=== PATIENT | female | born 2000 | race Caucasian/White ===

== ENCOUNTER 2024-11-05 10:25 | Outpatient (AMB) | payer OTHER, SELFPAY ==
--- NOTE | 2024-11-05 10:22 | A.OFFPC_ITS ---
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 Intake Note: New patient visit Special Effects Specialist Required: No Allergies bee pollen Allergy (Unknown, Verified 11/05/24 10:30) Unknown mold Allergy (Unknown, Verified 11/05/24 10:30) Unknown tree nuts Allergy (Unknown, Uncoded 11/05/24 10:30) Unknown Tobacco use date assessed: 11/05/24 Dental Screening Dental Screen Date: 11/05/24 Did you have a dental visit in the last 12 months?: Yes Did you have a dental problem in the last 6 months where you did not have access to dental care?: No Was dental information given to patient?: Patient has dentist HPI HPI Comments History of Present Illness Details The patient is a 24-year-old female presenting with a routine wellness visit. She is transitioning from pediatric to adult care, having been previously seen by pediatric [facility]. She is due for a physical. Patient was informed and verbally consented to the use of an ambient scribe for clinic note documentation during this visit. She has a history of a lifelong tree nut allergy, excluding peanuts, which results in significant respiratory distress upon exposure; however, she has not required treatment for an allergic reaction since childhood. She does not have an active prescription for an EpiPen. I prescribed one today and re-educated about propr use. Environmental allergies are present, for which she takes Anastasia as needed. She reported a neck nodule in the past that was biopsied and resolved without intervention. She has had a history of anxiety and depression for several years, causing distress, especially in occupational settings. Anxiety manifests intensely with nausea upon waking, and she has panic attacks. Previously attempted therapy was not beneficial for her. She works at [employer] with irregular scheduling, causing additional stress and anxiety. She is interested in seeing a psychiatrist for a medication consult. Denies SI/HI. She smokes marijuana which helps to decrease anxiety and helps her to sleep. She only drinks alcohol rarely. She goes to [facility] health coordinator and is up to date. She wears glasses, and eye exam is up to date. Dental exam is up to date. She enjoys playing video games. She lives with her mother who she says his supportive. She declines influenza vaccine. Tdap administered today. ROS: Constitutional: No unexplained weight loss, fever, chills, fatigue or night sweats. Eyes: No vision changes, blurry vision, double vision, eye pain, eye redness, eye discharge. ENT: No hearing loss, sneezing, congestion, runny nose or sore throat. Respiratory: No shortness of breath, cough or sputum production. Cardiovascular: No chest pain, chest pressure or chest discomfort. No palpitations or pedal edema. Gastrointestinal: No anorexia, vomiting or diarrhea. No abdominal pain or blood in stool. Genitourinary: No dysuria, hematuria, urinary frequency. Neurologic: No headache, dizziness, syncope, unilateral weakness, ataxia, numbness or tingling in the extremities. Musculoskeletal: No muscle pain, back pain, joint pain or swelling. Hematologic/Lymphatics: No bleeding or bruising. No painful lymph nodes. Skin: No rash or itching. Endocrine: No cold or heat intolerance. No polyuria or polydipsia. Psychiatric: see HPI Physical exam: Constitutional: Alert, in no distress. Head: Normocephalic. Eyes: Pupils are equal, round and reactive to light. Extraocular muscles intact. Ear, Nose and Throat: Canals clear. TMs normal. Normal nasal mucosa. No nasal discharge. No oral lesions. Neck: Supple, Full range of motion. No lymphadenopathy. No palpable thyroid masses. Respiratory: Clear to auscultation. Cardiovascular: S1 S2 regular. No murmurs. Gastrointestinal: Abdomen soft, non-tender, non-distended. Normal bowel sounds. No palpable masses. Neurologic: No focal neurological deficits. Symmetric patellar reflexes. Moves all extremities spontaneously. Sensation intact bilaterally. Skin: No rashes Musculoskeletal: No gross deformities. Normal range of motion. Extremities: Warm and well perfused. No clubbing, cyanosis or edema. Psychiatric: Normal mood and affect [facility] Medical History (Updated 11/05/24 @ 11:11 by SOBIA Schwartz) Environmental allergies Tree nut allergy Panic attack Depression with anxiety Routine physical examination Surgical History (Updated 11/05/24 @ 10:37 by Serena Gold CMA) S/P thyroid biopsy Family History (Updated 11/05/24 @ 10:50 by SOBIA Schwartz) Paternal Grandfather Stroke Hyperlipidemia Mother Obesity Paternal Grandmother Hyperlipidemia Father Heart attack, Onset Age: 45 Tobacco use disorder Hyperlipidemia Hypertension Social History (Updated 11/05/24 @ 10:40 by Serena Gold CMA) Housing: House Alcohol intake: current Patient Tobacco Use Status: Never used Tobacco e-Cigarette/Vaping Use: Never Used Second Hand Smoke Exposure: No Substance Use Type: Marijuana service: No Current occupational status: employed Current occupation: Shift lead at [employer] Current occupational exposures/hazards: No Cognitive needs: No Hearing needs: No Vision needs: Yes (Glasses) Questionnaire PHQ-9 Over the last 2 weeks, how often have you been bothered by any of the following problems? 1. Little interest or pleasure in doing things: several days 2. Feeling down, depressed, or hopeless: several days 3. Trouble falling or staying asleep, or sleeping too much: several days 4. Feeling tired or having little energy: several days 5. Poor appetite or overeating: several days 6. Feeling bad about yourself - or that you are a failure or have let yourself or your family down: several days 7. Trouble concentrating on things, such as reading the newspaper or watching television: several days 8. Moving or speaking so slowly that other people could have noticed. Or the opposite - being so fidgety or restless that you have been moving around a lot more than usual: not at all 9. Thoughts that you would be better off or of hurting yourself in some way: not at all Total score: 7 Depression Screening Interpretation: Positive Depression Screening Done: Yes 68476 - PHQ-9 Billing: Yes Source: Developed by Drs. George Trammell, Bhavna Che, Andrew Oshea and colleagues, with an educational dewey from [employer]. Thrive Questionnaire Date Thrive assessed: 11/05/24 I am a: Patient What is your living situation today?: I have a steady place to live Within the past 12 months, did the food you bought not last and you didn't have the money to get more?: Never true Within the past 12 months, did you worry whether your food would run out before you got money to buy more?: Never true Do you have trouble paying for medicines?: No Do you have trouble getting transportation to medical appointments?: No Do you have trouble paying your heating and electricity bill?: No Do you have trouble taking care of your child, family member or friend?: No Do you have trouble with day-to-day activities such as bathing, preparing meals, shopping, managing finances, etc.?: No Are you currently unemployed and looking for a job?: No Are you interested in more education?: No Please select the resources that you would like help with: None Currently or been in a relationship where the following occur: No concerns reported THRIVE Score: 0 AUDIT C Alcohol Use Questionnaire (AUDIT-C) 1. How often do you have a drink containing alcohol?: Monthly or less 2. How many drinks containing alcohol do you have on a typical day when you are drinking?: 1 or 2 3. How often do you have six or more drinks on one occasion?: Never Total Score: 1 CORNELL-7 AMB Questionnaire CORNELL-7 Date CORNELL - 7 assessed: 11/05/24 Feeling nervous, anxious, or on edge: 1 = Several days Not being able to stop or control worryin = Several days Worrying too much about different things: 1 = Several days Trouble relaxin = Several days Being so restless that it is hard to sit still: 1 = Several days Becoming easily annoyed or irritable: 1 = Several days Feeling afraid as if something awful might happen: 1 = Several days Total CORNELL-7 score (0-4 normal; 5-9 mild; 10-14 moderate; 15-21 severe): 7 Source: Developed by Drs. George Trammell, Bhavna Che, Andrew Oshea and colleagues, with an educational dewey from [employer]. Physical exam (Primary Care) Vital Signs: Last Vital Signs Pulse 71 11/05/24 10:37 BP 96/62 11/05/24 10:37 Pulse Ox 99 11/05/24 10:37 Oxygen Delivery Method Room Air 11/05/24 10:37 BMI result Body Mass Index 17.6 Tobacco/Smoking Status: Tobacco use Status Patient Tobacco Use Status Never used Tobacco 11/05/24 10:40 Depression Screening Interpretation: Positive Thrive Assessment: Date of Thrive Assessment Date Thrive assessed 11/05/24 11/05/24 10:23 Currently or been in a relationship where the following occur: No concerns reported Coding Level of Care Code New Pt Prev Care 18-39yr([id number] Diagnoses Routine physical examination Z00.00 Tree nut allergy Z91.018 Environmental allergies Z91.09 Panic attack F41.0 Depression with anxiety F41.8 Additional Codes PHQ-9 - 47662 - PHQ-9 Billing: Yes ([id number]) Assessment & Plan Assessment & Plan (1) Routine physical examination: Code(s): Z00.00 - Encounter for general adult medical examination without abnormal findings Category: Medical Plan: Patient is seen today for a routine physical. As part of this visit we reviewed the following issues, which are considered and essential part of preventative health in this age group: - Annual Facility Planner exam - Blood pressure screening - Cholesterol screening - she will return for labs. - Nutritional and exercise counseling - Counseling of injury prevention including fire prevention, smoke alarms and seat belt usage - Screening for depression - Prevention of and/or testing for infectious diseases - Education about skin cancer - Recommendations about immunizations - Recommendation of an eye exam - Screening for substance abuse - Genetic cancer risk screening (2) Tree nut allergy: Code(s): Z91.018 - Allergy to other foods Category: Medical Plan: Continue strict avoidance. EpiPen prescribed. (3) Environmental allergies: Code(s): Z91.09 - Other allergy status, other than to drugs and biological substances Category: Medical Plan: Continue Anastasia daily as needed. (4) Panic attack: Code(s): F41.0 - Panic disorder [episodic paroxysmal anxiety] Category: Medical Plan: Refer to psychiatrist for med consult. (5) Depression with anxiety: Code(s): F41.8 - Other specified anxiety disorders Category: Medical Plan: Refer to psychiatrist for med consult. Plan Follow up in 8 weeks for anxiety and depression. Orders: Orders TDaP Immunization Today Z23 - Encounter for immunization Comprehensive Met. Panel Today Z00.00 - Encounter for general adult medical examination without abnormal findings, Z13.6 - Encounter for screening for cardiovascular disorders Lipid Panel Today E78.5 - Hyperlipidemia, unspecified, Z00.00 - Encounter for general adult medical examination without abnormal findings, Z13.6 - Encounter for screening for cardiovascular disorders Complete Blood Count no Diff Today Z00.00 - Encounter for general adult medical examination without abnormal findings, Z13.6 - Encounter for screening for cardiovascular disorders Referrals Psychiatry Outpatient Consultation Service F41.0 - Panic disorder [episodic paroxysmal anxiety], F41.8 - Other specified anxiety disorders Medications: New epinephrine (EpiPen) call 911 if epipen is adminstered 0.3 mg (0.3 mL) IM Q15M PRN 2 ea 2RF anaphylaxis Boostrix Tdap (diphth,pertus(acell),tetanus) 0.5 mL IM ONCE 0.5 mL 0RF NS Z23 - Encounter for immunization
[2024-11-05 10:37] VITALS: BP 96/62; PULSE 71; O2SAT 99; BMI 17.6
== END 2024-11-05 11:12 | disposition home or self-care (01) ==
PROVIDERS: PCP Physician Assistant Medical; Visit Provider Physician Assistant Medical
DX: Z00.00 Encounter for general adult medical examination without abnormal findings (principal); Z91.018 Allergy to other foods; Z91.09 Other allergy status, other than to drugs and biological substances; F41.0 Panic disorder [episodic paroxysmal anxiety]; F41.8 Other specified anxiety disorders; Z23 Encounter for immunization

== ENCOUNTER 2024-12-04 14:56 | Outpatient (AMB) | payer OTHER, SELFPAY ==
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
== END 2024-12-04 15:49 | disposition home or self-care (01) ==
LOC: HO.HOP 14:56
PROVIDERS: PCP Physician Assistant Medical; Visit Provider Clinical Nurse Specialist Psychiatric/Mental Health
DX: F33.1 Major depressive disorder, recurrent, moderate (principal); F41.1 Generalized anxiety disorder; F41.0 Panic disorder [episodic paroxysmal anxiety]
CPT/HCPCS: 90792

== ENCOUNTER → 2024-12-04 14:56 | Outpatient (BNVA) | payer OTHER, SELFPAY | PROVIDERS: PCP Physician Assistant Medical; Visit Provider Clinical Nurse Specialist Psychiatric/Mental Health | DX: F41.1 Generalized anxiety disorder (principal); F41.0 Panic disorder [episodic paroxysmal anxiety]; F33.1 Major depressive disorder, recurrent, moderate | CPT/HCPCS: 90792 ==

== ENCOUNTER 2025-01-01 15:02 | Outpatient (AMB) | payer OTHER, SELFPAY ==
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
== END 2025-01-01 15:19 | disposition home or self-care (01) ==
LOC: HO.HOP 15:02
PROVIDERS: PCP Physician Assistant Medical; Visit Provider Clinical Nurse Specialist Psychiatric/Mental Health
DX: F41.1 Generalized anxiety disorder (principal); F41.0 Panic disorder [episodic paroxysmal anxiety]; F33.1 Major depressive disorder, recurrent, moderate
CPT/HCPCS: 99214

== ENCOUNTER → 2025-01-01 15:02 | Outpatient (BNVA) | payer OTHER, SELFPAY | PROVIDERS: PCP Physician Assistant Medical; Visit Provider Clinical Nurse Specialist Psychiatric/Mental Health ==

== ENCOUNTER 2025-01-04 11:32 | Outpatient (AMB) | payer OTHER, SELFPAY ==
--- NOTE | 2025-01-04 11:42 | MHC.PC.OV ---
Vital Signs 01/04/25 11:43 Height 5 ft 3.46 in Weight 100 lb BMI 17.5 BP 112/62 Blood Pressure Location Rt brachial Position Sitting Pulse 90 Pulse Source Pulse Oximeter Pulse Oximetry (%) 98 Oxygen Delivery Method Room Air Intake Visit Reasons: follow up depression and anxiety Allergies bee pollen Allergy (Unknown, Verified 01/04/25 11:46) Unknown mold Allergy (Unknown, Verified 01/04/25 11:46) Unknown tree nuts Allergy (Unknown, Uncoded 01/04/25 11:46) Unknown Tobacco use date assessed: 01/04/25 Dental Screening Dental Screen Date: 01/04/25 Did you have a dental visit in the last 12 months?: Yes Did you have a dental problem in the last 6 months where you did not have access to dental care?: No Was dental information given to patient?: Patient has dentist HPI HPI Comments History of Present Illness Details The patient is a 24-year-old female presenting for follow up. She was seen for a a routine physical in October, and we discussed anxiety and depression that lasted several years which caused distress, especially in occupational settings. She endorsed panic attacks. She is still working at [employer] with irregular scheduling which causes additional stress and anxiety. She denied SI/HI. She was referred to Psychology and Psychiatry. She is seeing Saundra Monte. She is on Zoloft 50 mg. She is tolerating it, and she feels like it is helping with anxiety and depression symptoms. She has sleep dysfunction and was prescribed hydroxyzine, and she just picked it up from the pharmacy but has not taken it yet. She has a follow up with her psychiatrist in January. She also feels like she is developing a good rapport with her therapist at [facility] in [place]. She did not have her blood work done yet, but she does agree to return for it when she is fasting. Declines influenza vaccine. ROS: Constitutional: No unexplained weight loss, fever, chills, fatigue or night sweats. Neurologic: No headache, dizziness, syncope Psychiatric: see HPI Physical exam: Constitutional: Alert, in no distress. Respiratory: Clear to auscultation. Cardiovascular: S1 S2 regular. No murmurs. Psychiatric: Appropriately answers questions. Maintains eye contact. Cooperative. [facility] Medical History Environmental allergies Tree nut allergy Panic attack Depression with anxiety Routine physical examination Surgical History S/P thyroid biopsy Family History Paternal Grandfather Stroke Hyperlipidemia Mother Obesity Paternal Grandmother Hyperlipidemia Father Heart attack, Onset Age: 45 Tobacco use disorder Hyperlipidemia Hypertension Social History Housing: House Alcohol intake: current Patient Tobacco Use Status: Never used Tobacco e-Cigarette/Vaping Use: Never Used Second Hand Smoke Exposure: No Substance Use Type: Marijuana service: No Current occupational status: employed Current occupation: Shift lead at [employer] Current occupational exposures/hazards: No Cognitive needs: No Hearing needs: No Vision needs: Yes (Glasses) Questionnaire PHQ-9 Over the last 2 weeks, how often have you been bothered by any of the following problems? 1. Little interest or pleasure in doing things: more than half the days 2. Feeling down, depressed, or hopeless: several days 3. Trouble falling or staying asleep, or sleeping too much: nearly every day 4. Feeling tired or having little energy: more than half the days 5. Poor appetite or overeating: not at all 6. Feeling bad about yourself - or that you are a failure or have let yourself or your family down: not at all 7. Trouble concentrating on things, such as reading the newspaper or watching television: not at all 8. Moving or speaking so slowly that other people could have noticed. Or the opposite - being so fidgety or restless that you have been moving around a lot more than usual: not at all 9. Thoughts that you would be better off or of hurting yourself in some way: not at all Total score: 8 Depression Screening Interpretation: Positive Depression Screening Done: Yes 45284 - PHQ-9 Billing: Yes Source: Developed by Drs. George Trammell, Bhavna Che, Andrew Oshea and colleagues, with an educational dewey from [employer]. Thrive Questionnaire Date Thrive assessed: 11/05/24 I am a: Patient What is your living situation today?: I have a steady place to live Within the past 12 months, did the food you bought not last and you didn't have the money to get more?: Never true Within the past 12 months, did you worry whether your food would run out before you got money to buy more?: Never true Do you have trouble paying for medicines?: No Do you have trouble getting transportation to medical appointments?: No Do you have trouble paying your heating and electricity bill?: No Do you have trouble taking care of your child, family member or friend?: No Do you have trouble with day-to-day activities such as bathing, preparing meals, shopping, managing finances, etc.?: No Are you currently unemployed and looking for a job?: No Are you interested in more education?: Yes Please select the resources that you would like help with: Education Currently or been in a relationship where the following occur: No concerns reported THRIVE Score: 0 AUDIT C Alcohol Use Questionnaire (AUDIT-C) 1. How often do you have a drink containing alcohol?: Monthly or less 2. How many drinks containing alcohol do you have on a typical day when you are drinking?: 1 or 2 3. How often do you have six or more drinks on one occasion?: Never Total Score: 1 CORNELL-7 AMB Questionnaire CORNELL-7 Date CORNELL - 7 assessed: 01/04/25 Feeling nervous, anxious, or on edge: 1 = Several days Not being able to stop or control worryin = Several days Worrying too much about different things: 1 = Several days Trouble relaxin = Several days Being so restless that it is hard to sit still: 0 = Not at all Becoming easily annoyed or irritable: 2 = More than half the days Feeling afraid as if something awful might happen: 1 = Several days Total CORNELL-7 score (0-4 normal; 5-9 mild; 10-14 moderate; 15-21 severe): 7 Source: Developed by Drs. George Trammell, Bhavna Che, Andrew Oshea and colleagues, with an educational dewey from [employer]. Physical exam (Primary Care) Vital Signs: Last Vital Signs Pulse 90 01/04/25 11:43 BP 112/62 01/04/25 11:43 Pulse Ox 98 01/04/25 11:43 Oxygen Delivery Method Room Air 01/04/25 11:43 BMI result Body Mass Index 17.5 Tobacco/Smoking Status: Tobacco use Status Tobacco use date assessed 01/04/25 01/04/25 11:47 Patient Tobacco Use Status Never used Tobacco 01/04/25 11:47 e-Cigarette/Vaping Use Never Used 01/04/25 11:47 PHQ-9: PHQ-9 Score PHQ-9: Total score 8 01/04/25 11:47 Depression Screening Interpretation: Positive Thrive Assessment: Date of Thrive Assessment Date Thrive assessed 11/05/24 01/04/25 11:47 Currently or been in a relationship where the following occur: No concerns reported Coding Level of Care Code Est Pt Level 3 (14659) Complex EM visit Add On G2211 Diagnoses Depression with anxiety F41.8 Panic attack F41.0 Additional Codes PHQ-9 - 42466 - PHQ-9 Billing: Yes ([id number]) Assessment & Plan Assessment & Plan (1) Depression with anxiety: Code(s): F41.8 - Other specified anxiety disorders Category: Medical (2) Panic attack: Code(s): F41.0 - Panic disorder [episodic paroxysmal anxiety] Category: Medical Plan: Refer to psychiatrist for med consult. Plan The patient reports improvement, and she appreciates the consultation with Psychiatry and Psychology. The plan is for her to continue therapy and medication recommendations per her specialists. She is also going to look for another job that is not in the [employer]. She will follow up in 3 months or sooner as needed.
[2025-01-04 11:43] VITALS: BP 112/62; PULSE 90; O2SAT 98; BMI 17.5
== END 2025-01-04 12:10 | disposition home or self-care (01) ==
PROVIDERS: PCP Physician Assistant Medical; Visit Provider Physician Assistant Medical
DX: F41.8 Other specified anxiety disorders (principal); F41.0 Panic disorder [episodic paroxysmal anxiety]

== ENCOUNTER → 2025-01-04 11:32 | Outpatient (BNVA) | payer OTHER, SELFPAY | PROVIDERS: PCP Physician Assistant Medical; Visit Provider Physician Assistant Medical | DX: F41.8 Other specified anxiety disorders (principal); F41.0 Panic disorder [episodic paroxysmal anxiety]; F32.A Depression, unspecified | CPT/HCPCS: 96127 ==

== ENCOUNTER 2025-04-05 08:23 | Outpatient (REF) | payer OTHER, SELFPAY ==
--- OUTSIDE RECORDS SUMMARY | 2025-04-05 08:26 | XMS_ITS | Encounter Summary ---
Author Organization [facility] Address [address] [place] [address] Phone Care Team Providers Care Biomedical Equipment Tech Name Role Phone Tena Floretnino NP Primary Care Provider [phone] Encounter Details Date Type Department Care Team (Late st Contact Info) Description 04/13/2018 Conversion Encounter [facility] [address] [place] [address] Social History Tobacco Use Types Packs/Day Years Used Date Smoking Tobacco: Never Assessed Comments Unknown Sex and Gender Information Value Date Recorded Sex Assigned at Not on file Legal Sex Female 6:28 PM EDT Gender Identity Not on file Sexual Orientation Not on file documented as of this encounter Plan of Treatment Not on file documented as of this encounter Visit Diagnoses Not on filedocumented in this encounter Care Teams Biomedical Equipment Tech Relationship Specialty Start Date End Date Tena Florentino NP [address] [place] [address] PCP - General Pediatrics 06/06/18 09/22/24 documented as of this encounter
--- OUTSIDE RECORDS SUMMARY | 2025-04-05 08:26 | XMS_ITS | Clinical Summary ---
Author Organization [facility] Address [address] [place] [address] Phone Care Team Providers Care Carpet Journeyman Name Role Phone Unavailable Primary Care Provider Unavailabl e Allergies Active Allergy Reactions Criticality Noted Date Comments Environmental 06/19/2018 Pollen, mold Food 06/19/2018 Tree nuts Medications Albuterol Sulfate (PROAIR RESPICLICK) 108 (90 Base) MCG/ACT aerosol powderIndicatio ns:Exercise-ind uced asthma 2 puffs q4hrs prn Dispense 2(home/school) 2 each 1 9 Active Additional Information Patient not taking.Reported on 01/03/2023 fexofenadine 180 MG tablet Take 180 mg by mouth daily. Active EPINEPHrine (EpiPen 2-Be) 0.3 MG/0.3ML injection syringeIndicati ons:History of peanut allergy Inject 0.3 mL (0.3 mg total) under the skin Once PRN for anaphylaxis for up to 1 dose. 1 syringe Once prn anaphylaxis 4 Syringe 0 Active Clindamycin Phos-Benzoyl Perox gelIndications: Acne vulgaris apply thin layer once daily 45 g 6 1 Active Additional Information Patient not taking.Reported on 01/03/2023 Tri-Sprintec 0.18/0.215/0.25 MG-35 MCG per tabletIndicatio ns:Acne vulgaris TAKE 1 TABLET BY MOUTH DAILY 84 tablet 3 2 Active Additional Information Patient not taking.Reported on 08/30/2023 Active Problems Problem Noted Date Diagnosed Date Neck nodule 09/03/2023 Overview (09/09/2023): Patient seen 08/30 in office for neck nodule, obtained U/S which was abnormal. Referred to Pedi Surg- scheduled for 09.06.23. [address] Dr[address] Vigil. Plan for biopsy- date TBD Chronic pain of both knees 06/28/2020 Overview (06/28/2020): [facility] 07/14, PFS, recommend PT Assessment & Plan (10/11/2021 10:55 AM EST): PT recommended by ortho. Assessment & Plan (06/30/2020 9:45 AM EDT): Discussed with mom that I would expect Lyme to present with a large unilateral effusion. I think [facility]OS recommendation of PT for PFS is reasonable. Mom will contact me if not responding to treatment. Acne vulgaris 06/23/2019 Assessment & Plan (06/30/2020 9:44 AM EDT): Responding very well to OCP. Assessment & Plan (06/23/2019 4:09 PM EDT): Doing well on OCP, will plan to continue. Environmental allergies 06/19/2018 Overview (06/19/2018): Allergy 10/10 - extensive allergic sensitivity to environmental allergens and mild dermatographism Assessment & Plan (10/11/2021 10:55 AM EST): No recent issues. Juvenile idiopathic scoliosis of thoracolumbar r egion 07/03/2017 Assessment & Plan (10/11/2021 10:55 AM EST): Mild, growth is complete. Assessment & Plan (06/30/2020 9:44 AM EDT): No significant change and growth is complete. Assessment & Plan (06/23/2019 4:10 PM EDT): No significant change and appears to be done with growth. Assessment & Plan (06/20/2018 5:35 PM EDT): Perhaps slight increase on scoliometer from last year, still mild and I suspect with a leg length discrepancy. Offered x-ray, referral to [facility], or monitor here as she is unlikely to grow more and mom opts for the latter. If any complaints of back pain or concerns, to call. History of peanut allergy 01/03/2017 Assessment & Plan (10/11/2021 10:55 AM EST): No refill on Epi Pen needed. Immunizations Immunization Administration Dates Next Due COVID-19 Moderna, monovalent , 12+ years 04/21/2021,03/24/2021 DTaP 10/10/2007, 4,03/19/2003,01/18,2002 HPV, Quadrivalent 11/23/2014,01/12/2014,11/05/20 13 Hep A, ped/adol 06/23/2019,06/19/2018 Hep B, ped/adol 06/17/2003,2002,2002 Hib (PRP-T) 12/22/2003, 3,01/18/2003,11/16 IPV 10/10/2007, 4,03/19/2003,01/18,2002 Influenza 10/10/2007 Influenza, injectable, quadrivalent 03/2016,11/23/2014,11/05/2013,11/03,10/31/2011,10/25/2010,10/13/2008 Influenza, injectable, quadr ivalent, preservative free 10/11/2021 Influenza, injectable, trivalent 11/29/2015 Influenza, injectable, triva lent, preservative free 09/18/2006 MMR 09/18/2006,09/17/2003 Meningococcal Conj (Menactra) MCV4P 06/23/2019,1 01/06/2013 Pneumococcal Conjugate 12/22/2003,2002,01/18/2003,11/16 Tdap 11/05/2013 Varicella 09/18/2006,09/17/2003 Family History Medical History Relation Name Comments Heart attack Father Amber Hyperlipidemia Father Amber No Known Problems Maternal Grandfather No Known Problems Maternal Grandmother Obesity Mother Debo Hyperlipidemia Paternal Grandfather Stroke Paternal Grandfather Hyperlipidemia Paternal Grandmother No Known Problems Sister Lindsay Relation Name Status Comments Father Amber Alive Maternal Grandfather Alive Maternal Grandmother Alive Mother Debo Alive Paternal Grandfather Alive Paternal Grandmother Alive Sister Lindsay Alive Social History Tobacco Use Types Packs/Day Years Used Date Smoking Tobacco: Never Smokeless Tobacco: Never Alcohol Use Standard Drinks/Week Comments No 0 (1 standard drink = 0.6 oz pur e alcohol) Hunger/Food Answer Date Recorded In the last 12 months, did y ou or your family ever eat less than you felt you should because there wasn't enough money for food? No 10/11/2021 Stable Housing Answer Date Recorded Are you worried that in the next 2 months you may not have stable housing? No 10/11/2021 Transportation Concerns Answer Date Rec orded In the last 12 months, have you or your family ever had to go without healthcare because you didn't have a way to get there? No 10/11/2021 Hazards in Home Answer Date Recorded Think about the place you li ve. Do you have problems with any of the following? Pests (mice or roaches), mold, no/not working smoke detectors, water leaks, no window guards. No 2020 Financing Utilities Answer Date Recorde d In the last 12 months, has t he electric, gas, oil, or water company threatened to shut off your services in your home? No 10/11/2021 Safety at Home Answer Date Recorded Are you or your family worried about feeling saf e in your home? No 10/11/2021 Outside Support Answer Date Recorded Do you feel that you need mo re support from other people or programs to help you care for yourself or your family? No 10/11/2021 Understanding Health Concerns Answer Da te Recorded Do you need help understandi ng your or your child's healthcare needs (diagnosis, medications, plan, etc.)? No 10/11/2021 Financing Health Concerns Answer Date R ecorded In the last 12 months, was t here a time when your child needed to see a doctor or get medications or supplies but could not because of cost? No 10/11/2021 Missing School or Work Answer Date Pablito rded Did you or your child miss s chool or work because of a health problem that could have been avoided? No 10/11/2021 Comments No Sex and Gender Information Value Date Recorded Sex Assigned at Not on file Legal Sex Female 6:28 PM EDT Gender Identity Not on file Sexual Orientation Not on file Last Filed Vital Signs Vital Sign Reading Time Taken Comments Blood Pressure 104/62 10/11/2021 10:14 AM EST Pulse 74 02/26/2019 1:43 PM EDT Temperature 36.2 ??C (97.2 ??F) 08/30/2023 1:00 PM ED T Respiratory Rate - - Oxygen Saturation 98% 02/26/2019 1:43 PM EDT Inhaled Oxygen Concentration - - Weight 47 kg (103 lb 9.6 oz) 08/30/2023 1:00 PM EDT Height 160 cm (5' 3 ) 10/11/2021 10:14 AM EST Body Mass Index 18.35 10/11/2021 10:14 AM EST Plan of Treatment Health Maintenance Due Date Last Done Comments Men B Vaccine (1 of 2 - Standard) 2018 DTaP,Tdap,and Td Vaccines (7 - Td or Tdap) 11/05/2023 11/05/2013, 10/10/2007, 12/22/2003, Additional history exists Influenza Vaccines (#1) 2024 10/11/20 21, 11/29/2015, 11/29/2015, Additional history exists COVID-19 Vaccine (4 - 2023-2 5 season) 2024 12/11/2021, 04/21/2021, 03/24/2021 Hepatitis B Vaccines Completed 06/17/2003, 2002, 2002 HIB Vaccines Completed 12/22/2003, 02/24, 01/18/2003, Additional history exists Pneumococcal Vaccine Completed 12/22/2003, 03/19/2003, 01/18/2003, Additional history exists MMR Vaccines Completed 09/18/2006, 09/17/2003 Varicella Vaccines Completed 09/18/2006, 09/17/2003 IPV Vaccines Completed 10/10/2007, 11/26, 03/19/2003, Additional history exists HPV Vaccines Completed 11/23/2014, 12/26, 11/05/2013 Hepatitis A Vaccines Completed 06/23/2019, 06/19/20 18 Meningococcal Vaccine Completed 06/23/2019, 013 Procedures * Due to [facility] law, this organization might not be sharing sensitive test results. Procedure Name Priority Date/Time Associated Diagnosis Comments CHLAMYDIA AND GONORRHEA, AMPLIFIED Routine 01/03/2023 3:08 PM EST Encounter for screening examination for sexually transmitted disease from Last 3 Months or Most Recently Relevant to Health Maintenance Results * Due to [place] law, this organization might not be sharing sensitive test results. * Chlamydia and Gonorrhoea, Amplified (01/03/2023 3:08 PM EST) Chlamydia Trachomatis, DNA Probe NEGATIVE (NEG) [facility] Comment: No Chlamydia Trachomatis RNA detected in this patient's sample ? (REFERENCE RANGE/NORMAL VALUE: NOT DETECTED) ? Note: This test uses creative engagement director- mediated amplification method to detect rRNA from C. Trachomatis URINE GC AMP PROBE NEGATIVE (NEG) [facility] Comment: No Neisseria Gonorrhoeae RNA detected in this patient's sample ? (REFERENCE RANGE/NORMAL VALUE: NOT DETECTED) ? NOTE: This test uses creative engagement director-mediated amplification method to detect rRNA from N.Gonorrhoeae. A negative result does not preclude infection. In the case of a negative urine result, testing of an endocervical(female) or urethral (male) specimen is recommended if there is high clinical suspicion of infection. Due to very high sensitivity of Nucleic Acid Amplification Test, false positive results may occur. Therefore, specimen handling is extremely important. In patients in whom the disease is unlikely, additional sample for testing should be considered after an initial positive result. The performance characteristics of this test have not been evaluated in children. The Aptima Combo2 assay is not intended for the evaluation of suspected sexual abuse or for other medico-legal indications. The ordering provider should assess if the patient had consensual sex without risk of sexual abuse. Consult the [facility] if needed. Contact phone number . Therapeutic failure or success cannot be determined with the Aptima Combo2 assay since nucleic acid may persist following appropriate antimicrobial therapy. The Centers for Disease Control and Prevention (CDC) recommends confirmatory retesting using culture or a different nucleic acid amplification test when positive results occur, if indicated. Testing performed or reported by [facility], a Service of [facility], [facility] [place] [address] Hansel Morris MD, Wastewater Project Manager [facility]# [id number] Urine (Urine) 01/03/2023 3:0 8 PM EST 01/04/2023 4:21 AM EST us Cat Donaldson MD LAB MICROBIOLOGY - GENERAL ORD ERABLES Final Result [facility] from Last 3 Months or Most Recently Relevant to Health Maintenance Insurance [employer]
[2025-04-05 11:26] LABS: Hematocrit 47.7 % (37.0-47.0); Hemoglobin 15.8 g/dl (12.0-16.0); Mean Corpuscular HGB Conc 33.1 g/dl (31.0-35.0); Mean Corpuscular Hemoglobin 31.4 pg (27.0-33.0); Mean Corpuscular Volume 94.8 fL (80.0-98.0); Mean Platelet Volume 12.1 fL (9.4-12.3); Platelet Count 199 X10*3/uL (160-400); Red Blood Count 5.03 X10*6/uL (4.20-5.50); Red Cell Distribution Width 12.3 % (11.0-16.0); White Blood Count 6.5 X10*3/uL (4.8-10.8)
[2025-04-05 12:16] LABS: Vitamin D 25-OH Total 33.6 ng/mL (>30)
[2025-04-05 12:50] LABS: Alanine Aminotransferase 25 U/L (0-31); Albumin Level 4.3 g/dL (3.5-5.0); Alkaline Phosphatase 68 U/L (39-117); Anion Gap 11 (12-20); Aspartate Amino Transferase 24 U/L (5-31); Bilirubin Total 0.3 mg/dL (0.0-1.0); Blood Urea Nitrogen 6 mg/dL (9-16); Calcium 8.9 mg/dL (8.4-10.2); Carbon Dioxide 25 mmol/L (22-29); Chloride 108 mmol/L (96-108); Cholesterol 181 mg/dL (<200); Estimated Glomerular Filt Rate > 60; Glucose Random 83 mg/dL (60-115); HDL Cholesterol 60 mg/dL (>40); LDL Cholesterol Calculated 112 mg/dL (<100); Potassium 3.9 mmol/L (3.3-5.1); Sodium 140 mmol/L (135-145); Total Protein 7.1 g/dL (6.5-8.0); Triglycerides 47 mg/dL (<150)
== END 2025-04-05 08:24 | disposition home or self-care (01) ==
LOC: HO.WFDLDS 08:23
PROVIDERS: Clinical Nurse Specialist Psychiatric/Mental Health; Visit Provider Physician Assistant Medical
DX: Z00.00 Encounter for general adult medical examination without abnormal findings (principal); F41.8 Other specified anxiety disorders; E78.5 Hyperlipidemia, unspecified; Z13.6 Encounter for screening for cardiovascular disorders
CPT/HCPCS: 36415; 80053; 80061; 82306; 85027; 96127

== ENCOUNTER 2025-04-05 11:19 | Outpatient (AMB) | payer OTHER, SELFPAY ==
--- NOTE | 2025-04-05 11:31 | A.OFFPC_ITS ---
Vital Signs 04/05/25 11:37 Height 5 ft 3.5 in Weight 101 lb 2 oz BMI 17.6 BP 98/68 Blood Pressure Location Lt brachial Position Sitting Pulse 96 Pulse Source Pulse Oximeter Temp 98.9 F Temp Source Temporal Artery Scan Pulse Oximetry (%) 97 Oxygen Delivery Method Room Air Intake Visit Reasons: recheck anxiety Intake Note: Yvrose presents in the office today to follow up on anxiety. Allergies bee pollen Allergy (Unknown, Verified 04/05/25 11:32) Unknown mold Allergy (Unknown, Verified 04/05/25 11:32) Unknown tree nuts Allergy (Unknown, Uncoded 01/04/25 11:46) Unknown Tobacco use date assessed: 04/05/25 Dental Screening Dental Screen Date: 04/05/25 Did you have a dental visit in the last 12 months?: Yes Did you have a dental problem in the last 6 months where you did not have access to dental care?: No Was dental information given to patient?: Patient has dentist HPI HPI Comments History of Present Illness Details The patient is a 24-year-old female presenting for follow up. Anxiety and depression-her insurance change so she was not able to follow up with Psychiatry. The next appointment she had was to increase the dose of sertraline, but she did not get to do that. She ran out of the medication. She still has anxiety and depression. No SI or HI. She was also speaking with a therapist. She tried hydroxyzine for sleep, but it was ineffective. She would like to restart medication for anxiety, depression and sleep. Patient is taking Anastasia for seasonal allergies. ROS: Constitutional: No fevers or chills. Psychiatric: See HPI Physical exam: Constitutional: Alert, in no distress. Respiratory: Clear to auscultation. Cardiovascular: S1 S2 regular. No murmurs. Psychiatric: Appropriately answers questions. Maintains eye contact. Cooperative. [facility] Medical History Environmental allergies Tree nut allergy Panic attack Depression with anxiety Routine physical examination Surgical History S/P thyroid biopsy Family History Paternal Grandfather Stroke Hyperlipidemia Mother Obesity Paternal Grandmother Hyperlipidemia Father Heart attack, Onset Age: 45 Tobacco use disorder Hyperlipidemia Hypertension Social History (Updated 04/05/25 @ 11:34 by Mary Bustamante MA) Housing: House Alcohol intake: current Patient Tobacco Use Status: Never used Tobacco e-Cigarette/Vaping Use: Never Used Second Hand Smoke Exposure: No Substance Use Type: Marijuana service: No Current occupational status: employed Current occupation: Shift lead at [employer] Current occupational exposures/hazards: No Cognitive needs: No Hearing needs: No Vision needs: Yes (Glasses) Questionnaire PHQ-9 Over the last 2 weeks, how often have you been bothered by any of the following problems? 1. Little interest or pleasure in doing things: not at all 2. Feeling down, depressed, or hopeless: several days 3. Trouble falling or staying asleep, or sleeping too much: nearly every day 4. Feeling tired or having little energy: more than half the days 5. Poor appetite or overeating: not at all 6. Feeling bad about yourself - or that you are a failure or have let yourself or your family down: not at all 7. Trouble concentrating on things, such as reading the newspaper or watching television: not at all 8. Moving or speaking so slowly that other people could have noticed. Or the opposite - being so fidgety or restless that you have been moving around a lot more than usual: not at all 9. Thoughts that you would be better off or of hurting yourself in some way: not at all Total score: 6 Depression Screening Interpretation: Negative Depression Screening Done: Yes 53282 - PHQ-9 Billing: Patient declined-do not bill Source: Developed by Drs. George Trammell, Bhavna Che, Andrew Oshea and colleagues, with an educational dewey from [employer]. Thrive Questionnaire Date Thrive assessed: 04/05/25 I am a: Patient What is your living situation today?: I have a steady place to live Within the past 12 months, did the food you bought not last and you didn't have the money to get more?: Never true Within the past 12 months, did you worry whether your food would run out before you got money to buy more?: Never true Do you have trouble paying for medicines?: No Do you have trouble getting transportation to medical appointments?: No Do you have trouble paying your heating and electricity bill?: No Do you have trouble taking care of your child, family member or friend?: No Do you have trouble with day-to-day activities such as bathing, preparing meals, shopping, managing finances, etc.?: No Are you currently unemployed and looking for a job?: No Are you interested in more education?: Yes Please select the resources that you would like help with: Education Currently or been in a relationship where the following occur: No concerns reported THRIVE Score: 0 AUDIT C Alcohol Use Questionnaire (AUDIT-C) 1. How often do you have a drink containing alcohol?: Monthly or less 2. How many drinks containing alcohol do you have on a typical day when you are drinking?: 1 or 2 3. How often do you have six or more drinks on one occasion?: Never Total Score: 1 Score Reviewed/Action Taken: No CORNELL-7 AMB Questionnaire CORNELL-7 Date CORNELL - 7 assessed: 04/05/25 Feeling nervous, anxious, or on edge: 1 = Several days Not being able to stop or control worryin = Several days Worrying too much about different things: 1 = Several days Trouble relaxin = Several days Being so restless that it is hard to sit still: 0 = Not at all Becoming easily annoyed or irritable: 1 = Several days Feeling afraid as if something awful might happen: 0 = Not at all Total CORNELL-7 score (0-4 normal; 5-9 mild; 10-14 moderate; 15-21 severe): 5 Source: Developed by Drs. George Trammell, Bhavna Che, Andrew Oshea and colleagues, with an educational dewey from [employer]. CORNELL-7 Assessment Billing CORNELL-7 Assessment Tool: CORNELL-7 Assessment 13100 Physical exam (Primary Care) Vital Signs: Last Vital Signs Temp 98.9 F 04/05/25 11:37 Pulse 96 04/05/25 11:37 BP 98/68 04/05/25 11:37 Pulse Ox 97 04/05/25 11:37 Oxygen Delivery Method Room Air 04/05/25 11:37 BMI result Body Mass Index 17.6 Tobacco/Smoking Status: Tobacco use Status Tobacco use date assessed 04/05/25 04/05/25 11:39 Patient Tobacco Use Status Never used Tobacco 04/05/25 11:39 e-Cigarette/Vaping Use Never Used 04/05/25 11:39 PHQ-9: PHQ-9 Score PHQ-9: Total score 6 04/05/25 11:39 Depression Screening Interpretation: Negative Thrive Assessment: Date of Thrive Assessment Date Thrive assessed 04/05/25 04/05/25 11:39 Currently or been in a relationship where the following occur: No concerns reported Coding Level of Care Code Est Pt Level 3 (02116) Complex EM visit Add On G2211 Diagnoses Depression with anxiety F41.8 Additional Codes CORNELL-7 Assessment Billing - CORNELL-7 Assessment Tool: CORNELL-7 Assessment 28021 ([id number]) Assessment & Plan Assessment & Plan (1) Depression with anxiety: Code(s): F41.8 - Other specified anxiety disorders Category: Medical Plan: Patient declines referral back to Psychology/Psychiatry. Restart sertraline 50 mg daily. Side effects, administration and black box warning reviewed. Trial of trazodone 25-50 mg 1 hour before bedtime. Do not take unless there is at least 8 hours to sleep. This causes sedation and drowsiness. Do not drive or operate heavy machinery with the medication. Plan Follow up in 4 weeks for a med check. Medications: New sertraline 50 mg PO DAILY 30 tabs 0RF trazodone 25 - 50 mg (0.5 - 1 x 50 mg) PO BEDTIME PRN 90 tabs 0RF sleep
[2025-04-05 11:37] VITALS: BP 98/68; PULSE 96; TEMP 37.2; O2SAT 97; BMI 17.6
--- OUTSIDE RECORDS SUMMARY | 2025-04-05 12:10 | XMS_ITS | Encounter Summary ---
Author Organization [facility] Address [address] [place] [address] Phone Care Team Providers Care Pharmacy Operations Specialist Name Role Phone Tena Florentino NP Primary Care Provider [phone] Reason for Visit * Reason Comments Med Refill Encounter Details Date Type Department Care Team (Late st Contact Info) Description 08/09/2021 [facility] [address] [address] Suki Young NP Acne, unspecified acne type Social History Tobacco Use Types Packs/Day Years Used Date Smoking Tobacco: Never Smokeless Tobacco: Never Alcohol Use Standard Drinks/Week Comments No 0 (1 standard drink = 0.6 oz pur e alcohol) Hunger/Food Answer Date Recorded In the last 12 months, did y ou or your family ever eat less than you felt you should because there wasn't enough money for food? No 06/30/2020 Stable Housing Answer Date Recorded Are you worried that in the next 2 months you may not have stable housing? No 06/30/2020 Transportation Concerns Answer Date Rec orded In the last 12 months, have you or your family ever had to go without healthcare because you didn't have a way to get there? No 06/30/2020 Hazards in Home Answer Date Recorded Think about the place you li ve. Do you have problems with any of the following? Pests (mice or roaches), mold, no/not working smoke detectors, water leaks, no window guards. No 2019 Financing Utilities Answer Date Recorde d In the last 12 months, has t he electric, gas, oil, or water company threatened to shut off your services in your home? No 06/30/2020 Safety at Home Answer Date Recorded Are you or your family worried about feeling saf e in your home? No 06/30/2020 Outside Support Answer Date Recorded Do you feel that you need mo re support from other people or programs to help you care for yourself or your family? No 06/30/2020 Understanding Health Concerns Answer Da te Recorded Do you need help understandi ng your or your child's healthcare needs (diagnosis, medications, plan, etc.)? No 06/30/2020 Financing Health Concerns Answer Date R ecorded In the last 12 months, was t here a time when your child needed to see a doctor or get medications or supplies but could not because of cost? No 06/30/2020 Missing School or Work Answer Date Pablito rded Did you or your child miss s chool or work because of a health problem that could have been avoided? No 06/30/2020 Comments No Sex and Gender Information Value Date Recorded Sex Assigned at Not on file Legal Sex Female 6:28 PM EDT Gender Identity Not on file Sexual Orientation Not on file documented as of this encounter Miscellaneous Notes * Telephone Encounter - Kamila Olvera MA - 08/09/2021 10:55 AM EDT Call to Yvrose ALMEIDA to please call and schedule * Telephone Encounter - Tena Florentino NP - 08/09/2021 10:33 AM EDT Refused for now - will send rx once appt is scheduled. * Telephone Encounter - Kamila Olvera MA - 08/09/2021 8:01 AM EDT Refill request for OCP Last [facility] 06/30/20 Refill 07/15/20 WC over due Will call and remind Please review documented in this encounter Plan of Treatment Not on file documented as of this encounter Visit Diagnoses Diagnosis Acne, unspecified acne type documented in this encounter Care Teams Pharmacy Operations Specialist Relationship Specialty Start Date End Date Tena Florentino NP [address] [place] [address] PCP - General Pediatrics 06/06/18 09/22/24 documented as of this encounter
--- OUTSIDE RECORDS SUMMARY | 2025-04-05 12:10 | XMS_ITS | Encounter Summary ---
Author Organization [facility] Address [address] [place] [address] Phone Care Team Providers Care Hris Coordinator Name Role Phone Tena Florentino NP Primary Care Provider [phone] Encounter Details Date Type Department Care Team (Late st Contact Info) Description 04/13/2018 Conversion Encounter [facility] [address] [place] [address] Social History Tobacco Use Types Packs/Day Years [...] on filedocumented in this encounter Care Teams Hris Coordinator Relationship Specialty Start Date End Date Tena Florentino NP [address] [place] [address] PCP - General Pediatrics 06/06/18 09/22/24 documented as of this encounter
--- OUTSIDE RECORDS SUMMARY | 2025-04-05 12:11 | XMS_ITS | Clinical Summary ---
Author Organization [facility] Address [address] [place] [address] Phone Care Team Providers Care Hot Braider Name Role Phone Unavailable Primary Care Provider [...] Completed 06/23/2019, 013 Procedures * Due to [facility] law, this organization might not be sharing sensitive test results. Procedure Name Priority Date/Time Associated Diagnosis Comments CHLAMYDIA AND GONORRHEA, AMPLIFIED Routine 01/03/2023 3:08 PM EST Encounter for screening examination for sexually transmitted disease from Last 3 Months or Most Recently Relevant to Health Maintenance Results * Due to [employer] law, this organization might not be sharing sensitive test results. * Chlamydia and Gonorrhoea, Amplified (01/03/2023 3:08 PM EST) Chlamydia Trachomatis, DNA Probe NEGATIVE (NEG) [facility] Comment: No Chlamydia Trachomatis RNA detected in this patient's sample ? (REFERENCE RANGE/NORMAL VALUE: NOT DETECTED) ? Note: This test uses gang head saw operator- mediated amplification method to detect rRNA from C. Trachomatis URINE GC AMP PROBE NEGATIVE (NEG) [facility] Comment: No Neisseria Gonorrhoeae RNA detected in this patient's sample ? (REFERENCE RANGE/NORMAL VALUE: NOT DETECTED) ? NOTE: This test uses gang head saw operator-mediated amplification method to detect rRNA from N.Gonorrhoeae. [...] without risk of sexual abuse. Consult the [facility] if needed. Contact phone number . Therapeutic failure or success cannot be determined with the Aptima Combo2 assay since nucleic acid may persist following appropriate antimicrobial therapy. The Centers for Disease Control and Prevention (CDC) recommends confirmatory retesting using culture or a different nucleic acid amplification test when positive results occur, if indicated. Testing performed or reported by [facility], a Service of [facility], [facility] [place] [address] Hansel Morris MD, Classification Analyst [facility]# [id number] Urine (Urine) 01/03/2023 3:0 8 PM EST 01/04/2023 4:21 AM EST us Cat Donaldson MD LAB MICROBIOLOGY - GENERAL ORD ERABLES Final Result [facility] from Last 3 Months or Most Recently Relevant to Health Maintenance Insurance [employer]
== END 2025-04-05 11:57 | disposition home or self-care (01) ==
LOC: HO.HMCFM 11:20
PROVIDERS: PCP Physician Assistant Medical; Visit Provider Physician Assistant Medical
DX: F41.8 Other specified anxiety disorders (principal)

== ENCOUNTER 2025-05-03 16:00 | Outpatient (AMB) | payer OTHER, SELFPAY ==
--- NOTE | 2025-05-03 16:05 | A.OFFPC_ITS ---
Vital Signs 05/03/25 16:08 Height 5 ft 3.5 in Weight 102 lb 2 oz BMI 17.8 BP 98/62 Blood Pressure Location Lt brachial Position Sitting Pulse 88 Pulse Source Pulse Oximeter Temp 97.9 F Temp Source Temporal Artery Scan Pulse Oximetry (%) 97 Oxygen Delivery Method Room Air Intake Visit Reasons: med check Intake Note: Yvrose presents in the office for a medication review. Allergies bee pollen Allergy (Unknown, Verified 05/03/25 16:07) Unknown mold Allergy (Unknown, Verified 05/03/25 16:07) Unknown tree nuts Allergy (Unknown, Uncoded 05/03/25 16:07) Unknown Tobacco use date assessed: 05/03/25 Dental Screening Dental Screen Date: 05/03/25 Did you have a dental visit in the last 12 months?: Yes Did you have a dental problem in the last 6 months where you did not have access to dental care?: No Was dental information given to patient?: Patient has dentist HPI HPI Comments History of Present Illness Details The patient is a 24-year-old female presenting for follow up. Anxiety and depression-she has been taking sertraline 50 mg daily. It was previously started by Psychiatry, but it was never titrated because she ran out of medicine and did not follow up. She does not feel an improvement on the dose, but she does not have side effects. Hydroxyzine was discontinued for sleep due to being ineffective. Trazodone is working. She takes 50 mg at bedtime. No SI or HI. ROS: Constitutional: No fevers or chills. Psychiatric: See HPI Physical exam: Constitutional: Alert, in no distress. Respiratory: Clear to auscultation. Cardiovascular: S1 S2 regular. No murmurs. Psychiatric: Appropriately answers questions. Maintains eye contact. Cooperative. [facility] Medical History Environmental allergies Tree nut allergy Panic attack Depression with anxiety Routine physical examination Surgical History S/P thyroid biopsy Family History Paternal Grandfather Stroke Hyperlipidemia Mother Obesity Paternal Grandmother Hyperlipidemia Father Heart attack, Onset Age: 45 Tobacco use disorder Hyperlipidemia Hypertension Social History (Updated 05/03/25 @ 16:08 by Mary Bustamante MA) Housing: House Alcohol intake: current Patient Tobacco Use Status: Never used Tobacco e-Cigarette/Vaping Use: Never Used Second Hand Smoke Exposure: No Substance Use Type: Marijuana service: No Current occupational status: employed Current occupation: Shift lead at [employer] Current occupational exposures/hazards: No Cognitive needs: No Hearing needs: No Vision needs: Yes (Glasses) Questionnaire Thrive Questionnaire Date Thrive assessed: 01/01/25 I am a: Patient What is your living situation today?: I have a steady place to live Within the past 12 months, did the food you bought not last and you didn't have the money to get more?: Never true Within the past 12 months, did you worry whether your food would run out before you got money to buy more?: Never true Do you have trouble paying for medicines?: No Do you have trouble getting transportation to medical appointments?: No Do you have trouble paying your heating and electricity bill?: No Do you have trouble taking care of your child, family member or friend?: No Do you have trouble with day-to-day activities such as bathing, preparing meals, shopping, managing finances, etc.?: No Are you currently unemployed and looking for a job?: No Are you interested in more education?: Yes Please select the resources that you would like help with: Education Currently or been in a relationship where the following occur: No concerns reported THRIVE Score: 0 CORNELL-7 AMB Questionnaire CORNELL-7 Date CORNELL - 7 assessed: 04/05/25 Source: Developed by Drs. George Trammell, Bhavna Che, Andrew Oshea and colleagues, with an educational dewey from [employer]. Physical exam (Primary Care) Vital Signs: Last Vital Signs Temp 97.9 F 05/03/25 16:08 Pulse 88 05/03/25 16:08 BP 98/62 05/03/25 16:08 Pulse Ox 97 05/03/25 16:08 Oxygen Delivery Method Room Air 05/03/25 16:08 BMI result Body Mass Index 17.8 Tobacco/Smoking Status: Tobacco use Status Tobacco use date assessed 05/03/25 05/03/25 16:10 Patient Tobacco Use Status Never used Tobacco 05/03/25 16:10 e-Cigarette/Vaping Use Never Used 05/03/25 16:10 Thrive Assessment: Date of Thrive Assessment Date Thrive assessed 01/01/25 05/03/25 16:10 Currently or been in a relationship where the following occur: No concerns reported Coding Level of Care Code Est Pt Level 3 (16080) Complex EM visit Add On G2211 Diagnoses Depression with anxiety F41.8 Assessment & Plan Assessment & Plan (1) Depression with anxiety: Code(s): F41.8 - Other specified anxiety disorders Category: Medical Plan: Patient declines referral back to Psychology/Psychiatry. Increase sertraline to 100 mg daily. Side effects, administration and black box warning reviewed. Continue trazodone 50 mg 1 hour before bedtime. Do not take unless there is at least 8 hours to sleep. This causes sedation and drowsiness. Do not drive or operate heavy machinery with the medication. Plan Follow up in 6 weeks for a med check. Medications: New sertraline 100 mg PO DAILY 60 tabs 0RF Changed From trazodone 25 - 50 mg (0.5 - 1 x 50 mg) PO BEDTIME PRN 90 tabs 0RF sleep To trazodone 50 mg PO BEDTIME PRN 90 tabs 0RF sleep Discontinued sertraline Discontinued Reason: Doctor's Order 50 mg PO DAILY 90 tabs 0RF
[2025-05-03 16:08] VITALS: BP 98/62; PULSE 88; TEMP 36.6; O2SAT 97; BMI 17.8
--- OUTSIDE RECORDS SUMMARY | 2025-05-03 17:35 | XMS_ITS | Encounter Summary ---
Author Organization [facility] Address [address] [place] [address] Phone Care Team Providers Care Open Die Inspector Name Role Phone Tena Florentino NP Primary Care Provider [phone] Reason for Visit * Reason Comments Med Refill Encounter Details Date Type Department Care Team (Late st Contact Info) Description 08/09/2021 [facility] [address] [address] Suki Young NP Acne, unspecified acne type [...] type documented in this encounter Care Teams Open Die Inspector Relationship Specialty Start Date End Date Tena Florentino NP [address] [place] [address] PCP - General Pediatrics 06/06/18 09/22/24 documented as of this encounter
== END 2025-05-03 16:26 | disposition home or self-care (01) ==
LOC: HO.HMCFM 16:01
PROVIDERS: PCP Physician Assistant Medical; Visit Provider Physician Assistant Medical
DX: F41.8 Other specified anxiety disorders (principal)

== ENCOUNTER → 2025-05-03 16:00 | Outpatient (BNVA) | payer OTHER, SELFPAY | PROVIDERS: PCP Physician Assistant Medical; Visit Provider Physician Assistant Medical ==

== ENCOUNTER 2025-06-17 15:28 | Outpatient (AMB) | payer OTHER, SELFPAY ==
--- OUTSIDE RECORDS SUMMARY | 2025-06-17 15:31 | XMS_ITS | Encounter Summary ---
Author Organization [facility] Address [address] [place] [address] Phone Care Team Providers Care Sweeper Driver Name Role Phone Tena Florentino NP Primary Care Provider [phone] Reason for Visit * Reason Comments Med Refill Encounter Details Date Type Department Care Team (Late st Contact Info) Description 08/09/2021 [facility] [address] [address] Suki Young NP Acne, unspecified acne type [...] type documented in this encounter Care Teams Sweeper Driver Relationship Specialty Start Date End Date Tena Florentino NP [address] [place] [address] PCP - General Pediatrics 06/06/18 09/22/24 documented as of this encounter
--- NOTE | 2025-06-17 15:42 | A.OFFPC_ITS ---
Vital Signs 06/17/25 15:44 Height 5 ft 3.5 in Weight 99 lb BMI 17.3 BP 96/52 L Blood Pressure Location Lt brachial Position Sitting Pulse 86 Pulse Source Pulse Oximeter Temp 98.4 F Temp Source Temporal Artery Scan Pulse Oximetry (%) 98 Oxygen Delivery Method Room Air Intake Visit Reasons: med check anxiety/depression Intake Note: Yvrose presents in the office today for a medication check in Allergies bee pollen Allergy (Unknown, Verified 06/17/25 15:43) Unknown mold Allergy (Unknown, Verified 06/17/25 15:43) Unknown tree nuts Allergy (Unknown, Uncoded 06/17/25 15:43) Unknown Tobacco use date assessed: 06/17/25 Dental Screening Dental Screen Date: 06/17/25 Did you have a dental visit in the last 12 months?: Yes Did you have a dental problem in the last 6 months where you did not have access to dental care?: No Was dental information given to patient?: Patient has dentist HPI HPI Comments History of Present Illness Details The patient is a 24-year-old female presenting for follow up. She decided to stop taking sertraline and trazodone a month ago. She made this decision because she has been feeling better. She denies worsening symptoms off of the medications. She does not want to pursue further evaluation of symptoms or treatment at this time. She continues to work. She is excited to go to a consult this weekend. Denies SI/HI. She needs a referral to OBGYN for her annual exam. ROS: Constitutional: No fevers or chills. Psychiatric: See HPI Physical exam: Constitutional: Alert, in no distress. Respiratory: Clear to auscultation. Cardiovascular: S1 S2 regular. No murmurs. Psychiatric: Appropriately answers questions. Maintains eye contact. Cooperative. [facility] Medical History Environmental allergies Tree nut allergy Panic attack Depression with anxiety Routine physical examination Surgical History S/P thyroid biopsy Family History Paternal Grandfather Stroke Hyperlipidemia Mother Obesity Paternal Grandmother Hyperlipidemia Father Heart attack, Onset Age: 45 Tobacco use disorder Hyperlipidemia Hypertension Social History (Updated 06/17/25 @ 15:44 by Mary Bustamante MA) Housing: House Alcohol intake: current Patient Tobacco Use Status: Never used Tobacco e-Cigarette/Vaping Use: Never Used Second Hand Smoke Exposure: No Substance Use Type: Marijuana service: No Current occupational status: employed Current occupation: Shift lead at [employer] Current occupational exposures/hazards: No Cognitive needs: No Hearing needs: No Vision needs: Yes (Glasses) Questionnaire Thrive Questionnaire Date Thrive assessed: 01/01/25 I am a: Patient What is your living situation today?: I have a steady place to live Within the past 12 months, did the food you bought not last and you didn't have the money to get more?: Never true Within the past 12 months, did you worry whether your food would run out before you got money to buy more?: Never true Do you have trouble paying for medicines?: No Do you have trouble getting transportation to medical appointments?: No Do you have trouble paying your heating and electricity bill?: No Do you have trouble taking care of your child, family member or friend?: No Do you have trouble with day-to-day activities such as bathing, preparing meals, shopping, managing finances, etc.?: No Are you currently unemployed and looking for a job?: No Are you interested in more education?: Yes Please select the resources that you would like help with: Education Currently or been in a relationship where the following occur: No concerns reported THRIVE Score: 0 CORNELL-7 AMB Questionnaire CORNELL-7 Date CORNELL - 7 assessed: 04/05/25 Source: Developed by Drs. George Trammell, Bhavna Che, Andrew Oshea and colleagues, with an educational dewey from [employer]. Physical exam (Primary Care) Vital Signs: Last Vital Signs Temp 98.4 F 06/17/25 15:44 Pulse 86 06/17/25 15:44 BP 96/52 L 06/17/25 15:44 Pulse Ox 98 06/17/25 15:44 Oxygen Delivery Method Room Air 06/17/25 15:44 BMI result Body Mass Index 17.3 Tobacco/Smoking Status: Tobacco use Status Tobacco use date assessed 06/17/25 06/17/25 15:46 Patient Tobacco Use Status Never used Tobacco 06/17/25 15:44 e-Cigarette/Vaping Use Never Used 06/17/25 15:44 Thrive Assessment: Date of Thrive Assessment Date Thrive assessed 01/01/25 06/17/25 15:42 Currently or been in a relationship where the following occur: No concerns reported Coding Level of Care Code Est Pt Level 3 (83477) Complex EM visit Add On G2211 Diagnoses Depression with anxiety F41.8 Assessment & Plan Assessment & Plan (1) Depression with anxiety: Code(s): F41.8 - Other specified anxiety disorders Category: Medical Plan: Patient declines referral back to Psychology/Psychiatry. Patient feels that she is doing well. We discussed that many patients can experience recurrent symptoms. She will monitor closely. She declines to schedule a follow up at this time, but she will call the office if she has recurrent symptoms. Plan Follow up in 6 months for a physical exam. Orders: Referrals [facility] Referral [id number] - Encounter for gynecological examination (general) (routine) without abnormal findings
[2025-06-17 15:44] VITALS: BP 96/52; PULSE 86; TEMP 36.9; O2SAT 98; BMI 17.3
== END 2025-06-17 16:01 | disposition home or self-care (01) ==
LOC: HO.HMCFM 15:29
PROVIDERS: PCP Physician Assistant Medical; Visit Provider Physician Assistant Medical
DX: F41.8 Other specified anxiety disorders (principal)